=== PATIENT | male | born 1980 | race Caucasian/White ===

== ENCOUNTER 2016-09-21 08:31 | Emergency (ER) | payer MEDICAID ==
[~2016-09-21] VITALS: Ht 167.6 cm; Wt 71.5 kg
[2016-09-21 08:38] VITALS: Ht 167.6 cm; Wt 71.5 kg
[2016-09-21] MEDS ORDERED: FAMOTIDINE 20 MG INJ IV STA (08:52)
[2016-09-21] MEDS ORDERED: ONDANSETRON 4 MG INJ IV STA (08:52)
[2016-09-21] MEDS ORDERED: morphine 4 MG/ML VIAL IV STA (09:21)
[2016-09-21 09:46] LABS: ADD SCAN DIFF NO
[2016-09-21 09:49] LABS: ADD UMIC YES; URINE BILIRUBIN (Dip) NEGATIVE (NEGATIVE); URINE BLOOD (Dip) NEGATIVE (NEGATIVE); URINE COLOR LT. YELLOW (YELLOW); URINE GLUCOSE (Dip) NEGATIVE (NEGATIVE); URINE KETONES (Dip) NEGATIVE (NEGATIVE); URINE LEUKOCYTE ESTERASE (Dip) NEGATIVE (NEGATIVE); URINE NITRITE (Dip) NEGATIVE (NEGATIVE); URINE TOTAL PROTEIN (Dip) TRACE (NEGATIVE); URINE UROBILINOGEN (Dip) 0.2 E.U./dL (0.1-1.0)
[2016-09-21 09:51] LABS: BASOPHILS % 0.4 % (0.0-2.0); EOSINOPHILS % 0.3 % (0.0-7.0); HEMATOCRIT 44.3 % (42.0-52.0); HEMOGLOBIN 15.3 g/dl (14.0-18.0); LYMPHOCYTES # 1.7 10^3/ul (0.8-2.9); LYMPHOCYTES % 20.8 % (15.0-51.0); MEAN CORPUSCULAR HEMOGLOBIN 29.2 pg (29.0-33.0); MEAN CORPUSCULAR HGB CONC 34.5 g/dl (32.0-37.0); MEAN CORPUSCULAR VOLUME 84.5 fl (82.0-101.0); MEAN PLATELET VOLUME 10.6 fl (7.4-10.4); MONOCYTE # 0.4 10^3/ul (0.3-0.9); MONOCYTES % 4.4 % (0.0-11.0); NEUTROPHIL # 5.9 10^3/ul (1.6-7.5); NEUTROPHILS % 73.8 % (39.0-77.0); PLATELET COUNT 237 10^3/UL (140-415); RED BLOOD COUNT 5.24 10^6/ul (4.70-6.10); RED CELL DISTRIBUTION WIDTH 12.4 % (11.5-14.5)
[2016-09-21 10:15] LABS: ALBUMIN 5.1 g/dl (3.3-4.9); ALBUMIN/GLOBULIN RATIO 1.59; BILIRUBIN,INDIRECT 0.8 mg/dl (0-1.1); BILIRUBIN,TOTAL 0.8 mg/dl (0.2-1.3); CALCIUM 9.4 mg/dl (8.4-10.2); CREATININE 0.8 mg/dl (0.61-1.24); POTASSIUM 3.6 mmol/L (3.5-5.1); TOTAL PROTEIN 8.3 g/dl (6.1-8.1)
[2016-09-21] MEDS ORDERED: LIDOCAINE/MYLANTA 40 ML BTL PO ONE (10:30)
--- NOTE | 2016-09-21 11:25 | RADRPT ---
PROCEDURE: US Abdomen. CLINICAL INDICATION: abdominal pain TECHNIQUE: Multiple real-time images were acquired of the patient's right upper quadrant abdomen a nd retroperitoneum utilizing a high resolution transducer. COMPARISON: None FINDINGS: The liver demonstrates normal echogenicity. The liver is normal in size and no focal solid lesions are seen. The liver measures 12.6 cm in length. The portal vein is patent with normal direction of f low. No intrahepatic biliary dilatation is seen. Multiple stones are seen within the gallbladder. The gallbladder wall is thickened, measuring 4 mm. There is trace pericholecystic fluid noted. The common bile duct measures 4 mm. The visualized portions of the pancreas are unremarkable. The tail of the pancreas is not seen. No free fluid is identified. The right kidney is normal in size, and demonstrate normal echogenicity and cortical thickness. The right kidney measures 11.0 cm in long dimension. There is no evidence of hydronephrosis. There are no kidney stones. RPTAT: AA IMPRESSION: Cholelithiasis with gallbladder wall thickening and trace pericholecystic fluid may represent acute cholecystitis. This could be confirmed with a HIDA scan if clinically indicated.. .Mark Varma MD, Date Time Electronically viewed and signed by .Mark Varma MD, MD on 09/21/2016 11:25 .S/
[2016-09-21] MEDS ORDERED: PANT40TA3 PO (11:39)
[2016-09-21] MEDS ORDERED: HYDR-906 PO (11:39)
[2016-09-21] MEDS ORDERED: ONDA8TAB14 PO (11:39)
--- NOTE | 2016-09-21 11:42 | ERD ---
ER Documentation Chief Complaint Date/Time DATE: 09/21/16 TIME: 11:40 Chief Complaint Abdominal pain HPI Patient presents with epigastric abdominal pain starting early this morning. He has some vomiting as well. Pain is in the epigastric area. Denies pain in the right upper quadrant or lower abdomen. Denies fevers chills. Denies diarrhea or urinary complaints. ROS All systems reviewed and are negative except as per history of present illness. Medications Home Meds Active Scripts Pantoprazole* (Protonix*) 40 Mg Tablet.dr, 40 MG PO DAILY, #15 TAB Prov:LEIDY BARDALES MD 09/21/16 Ondansetron (Ondansetron Odt) 8 Mg Tab.rapdis, 8 MG PO Q6H Y for NAUSEA AND/OR VOMITING, #8 TAB Prov:LEIDY BARDALES MD 09/21/16 Hydrocodone/Acetaminophen ([place] 5-325 Tablet) 1 Each Tablet, 1 TAB PO Q6H Y for PAIN, #14 TAB Prov:LEIDY BARDALES MD 09/21/16 Allergies Allergies: Coded Allergies: No Known Allergy (Unverified , 09/21/16) PMhx/Soc Medical and Surgical Hx: pt denies Medical Hx, pt denies Surgical Hx Hx Alcohol Use: No Hx Substance Use: No Hx Tobacco Use: No Physical Exam Vitals Vital Signs Date Time Temp Pulse Resp B/P Pulse Ox O2 Delivery O2 Flow Rate FiO2 09/21/16 08:38 98.0 60 20 135/90 100 Physical Exam Const: [] Alert, [id number]. Head: Atraumatic Eyes: Normal Conjunctiva ENT: Normal External Ears, Nose and Mouth. Neck: Full range of motion..~ No meningismus. Resp: Clear to auscultation bilaterally Cardio: Regular rate and rhythm, no murmurs Abd: Soft, tender in the epigastric area. No Subramanian sign and no tenderness at McBurney's point no rebound. non distended. Normal bowel sounds Skin: No petechiae or rashes Back: No midline or flank tenderness Ext: No cyanosis, or edema Neur: Awake and alert Psych: Normal Mood and Affect Result Diagram: 09/21/16 0909/21/16 0906 Results 24 hrs Laboratory Tests Test 09/21/16 09:06 White Blood Count 8.010^3/ul Red Blood Count 5.2410^6/ul Hemoglobin 15.3g/dl Hematocrit 44.3% Mean Corpuscular Volume 84.5fl Mean Corpuscular Hemoglobin 29.2pg Mean Corpuscular Hemoglobin Concent 34.5g/dl Red Cell Distribution Width 12.4% Platelet Count 41978^3/UL Mean Platelet Volume 10.6fl Neutrophils % 73.8% Lymphocytes % 20.8% Monocytes % 4.4% Eosinophils % 0.3% Basophils % 0.4% Nucleated Red Blood Cells % 0.0/100WBC Neutrophils # 5.910^3/ul Lymphocytes # 1.710^3/ul Monocytes # 0.410^3/ul Eosinophils # 0.010^3/ul Basophils # 0.010^3/ul Nucleated Red Blood Cells # 0.010^3/ul Urine Color LT. YELLOW Urine Clarity CLEAR Urine pH 7.5 Urine Specific [place] 1.020 Urine Ketones NEGATIVE Urine Nitrite NEGATIVE Urine Bilirubin NEGATIVE Urine Urobilinogen 0.2 E.U./dL Urine Leukocyte Esterase NEGATIVE Urine Microscopic RBC 2-5/HPF Urine Microscopic WBC 2-5/HPF Urine Amorphous Phosphates MANY Urine Hemoglobin NEGATIVE Urine Glucose NEGATIVE% Urine Total Protein TRACE Sodium Level 143mmol/L Potassium Level 3.6mmol/L Chloride Level 103mmol/L Carbon Dioxide Level 29mmol/L Anion Gap 15 Blood Urea Nitrogen 18mg/dl Creatinine 0.80mg/dl Glucose Level 137mg/dl Calcium Level 9.4mg/dl Total Bilirubin 0.8mg/dl Direct Bilirubin 0.00mg/dl Indirect Bilirubin 0.8mg/dl Aspartate Amino Transf (AST/SGOT) 31IU/L Alanine Aminotransferase (ALT/SGPT) 63IU/L Alkaline Phosphatase 112IU/L Total Protein 8.3g/dl Albumin 5.1g/dl Globulin 3.20g/dl Albumin/Globulin Ratio 1.59 Lipase 80U/L Current Medications Medications (Trade) Dose Ordered Sig/Aster Route PRN Reason Start Time Stop Time Status Last Admin Dose Admin Ondansetron HCl (Zofran Inj) 4 mg ONCE STAT IV 09/21/16 08:52 09/21/16 08:54 DC 09/21/16 09:01 Famotidine (Pepcid Iv) 20 mg ONCE STAT IV 09/21/16 08:52 09/21/16 08:54 DC 09/21/16 09:01 Morphine Sulfate (morphine) 4 mg ONCE STAT IV 09/21/16 09:21 09/21/16 09:22 DC 09/21/16 09:23 Miscellaneous Medication (Gi Cocktail (2)) 40 ml ONCE ONCE PO 09/21/16 10:30 09/21/16 10:31 DC 09/21/16 10:08 Procedures/MDM IV was obtained. Patient was given morphine 4 mg IV and Zofran 4 mg IV. He was given Pepcid 20 mg IV as well. Patient was given a GI cocktail as well for persistent pain despite morphine. CBC is normal and CMP and lipase are normal. Right upper quadrant ultrasound shows gallstones with possible gallbladder wall thickening correlate for cholecystitis. Serial abdominal exam shows that pain is completely resolved and patient had a benign abdomen. Patient presents with epigastric pain which is resolved with treatment in the ER here. He does have some ultrasound suggestion of cholecystitis but there is no laboratory evidence or clinical exam to correlate with cholecystitis. Patient appears currently safe for outpatient treatment. We treated with [place], Protonix and Zofran instructions to follow-up with primary doctor in general surgery. Patient was advised to return for fevers, vomiting, intractable pain, new worsening symptoms. Otherwise he should see primary doctor and surgeon as directed. The patient was stable with no new complaints during the ER course. Clinically, there is no current evidence to suggest meningitis, sepsis, acute abdomen, pneumonia, acute coronary syndrome, pulmonary embolism, or any other emergent condition appearing to require further evaluation or hospitalization. The patient should certainly return for any new or worsening symptoms per the aftercare instructions. They should otherwise follow-up with her primary care doctor for reevaluation this week. Departure Diagnosis: Primary Impression: Gallstones Additional Impression: Abdominal pain Abdominal location: epigastric Qualified Code: R10.13 - Epigastric pain Condition: Stable Patient Instructions: Biliary Colic With Gallstone (Confirmed), Gastritis ( Adult) Referrals: ALYSON TY MD Additional Instructions: TIENE PIEAS EN VESICULA. REGRESA PARA MAS VOMITO , FIEBRE. Va al hernandez doctor/ specialista para mas evaluacon en el proximo semana. posiblemente necesita autorizado de hernandez doctor primario para specialista. Regresa para fiebre, o mas o nueva simptomas. LEIDY BARDALES MD Sep 21, 2016 11:42
== END 2016-09-21 13:08 | disposition home or self-care (01) ==
LOC: FTE 08:31
DX: K80.20 Calculus of gallbladder without cholecystitis without obstruction (principal); R11.10 Vomiting, unspecified
CPT/HCPCS: 36415; 76705; 80053; 81001; 83690; 85025; 96374; 96375; J2270; J2405; Z7502; Z7610

== ENCOUNTER 2017-12-05 14:09 | Emergency (ER) | END 2017-12-05 17:12 | disposition home or self-care (01) ==